=== PATIENT | female | born 1970 | race Caucasian/White ===

== ENCOUNTER 2021-06-15 12:38 | Emergency (ER) | payer BC, OTHER ==
[~2021-06-15] VITALS: Ht 154.9 cm; Wt 54.5 kg
[~2021-06-15 12:38] MED LIST: CHOL20003 PO; DHEA25 PO; OSC500T PO; VALA-7 CORPAK; VITA1CAP62 PO
[2021-06-15 13:01] VITALS: BP 102/75
== END 2021-06-15 13:58 | disposition home or self-care (01) ==
LOC: ER 12:39
DX: U07.1 COVID-19 (principal); R07.81 Pleurodynia; Z88.8 Allergy status to other drugs, medicaments and biological substances; Z79.2 Long term (current) use of antibiotics; Z79.899 Other long term (current) drug therapy
CPT/HCPCS: 99281

== ENCOUNTER 2021-12-28 14:08 | Day surgery (SDC) | payer BC ==
[2021-12-21 17:13] LABS: CLARITY,URINE CLEAR (Clear); COLOR,URINE YELLOW (Yellow); GLUCOSE, URINE NEGATIVE (Neg); KETONES,URINE 15 mg/dl (Neg); LEUKOCYTE ESTERASE ,URINE NEGATIVE (Neg); NITRITES, URINE NEGATIVE (Neg); OCCULT BLOOD,URINE NEGATIVE (Neg); PROTEIN,URINE NEGATIVE (Neg); UROBILINOGEN,URINE 0.2 E.U/dL (0.2-1.0)
[2021-12-21 17:17] LABS: BASOPHILS % (AUTO) 1.1 % (0-1); EOSINOPHILS % (AUTO) 0.2 % (0-6); LYMPHOCYTES # (AUTO) 1.7 X10'3 (1.1-4.8); LYMPHOCYTES % (AUTO) 40.1 % (21-51); MEAN CORPUSCULAR HEMOGLOBIN 32.1 PG (27.0-31.0); MEAN CORPUSCULAR HGB CONC 33.8 g/dL (33.0-36.5); MEAN CORPUSCULAR VOLUME 94.8 FL (78-98); MEAN PLATELET VOLUME 8.1 FL (7.4-10.4); MONOCYTES # (AUTO) 0.5 X10'3 (0-0.9); MONOCYTES % (AUTO) 10.5 % (2-12); NEUTROPHILS # (AUTO) 2.1 X10'3 (1.8-7.7); NEUTROPHILS % (AUTO) 48.1 % (42-75); PRE OP HEMATOCRIT 37.7 % (35.0-45.0); PRE OP HEMOGLOBIN 12.8 g/dL (12.0-16.0); PRE OP PLATELET COUNT 174 X10'3 (140-440); RED BLOOD COUNT 3.98 X10'6 (4.20-5.60); RED CELL DISTRIBUTION WIDTH 12.5 % (11.5-14.5)
[2021-12-21 17:21] LABS: HCG SERUM QL NEGATIVE
[2021-12-21 17:23] LABS: UA COLLECTION TYPE CLN CATCH MIDSTREAM
[2021-12-21 17:23] LABS: ALBUMIN 3.5 G/DL (3.4-5.0); ALBUMIN/GLOBULIN RATIO 1.2 (1.1-1.5); ALKALINE PHOSPHATASE 58 IU/L (46-116); BLOOD UREA NITROGEN 13 MG/DL (7-18); BUN/CREATININE RATIO 13.7 (6.6-38.0); CALCIUM 8.3 MG/DL (8.5-10.1); CHLORIDE 106 MMOL/L (99-107); CREATININE 0.95 MG/DL (0.40-0.90); PRE OP ALT 17 U/L (30-65); PRE OP ANION GAP 5 (8-16); PRE OP AST 25 U/L (10-37); PRE OP BILIRUB, TOTAL 0.2 MG/DL (0.0-1.0); PRE OP GLUCOSE 89 MG/DL (70-104); PRE OP POTASSIUM 3.8 MMOL/L (3.4-5.1); PRE OP SODIUM 144 MMOL/L (135-145); TOTAL CARBON DIOXIDE 33.4 MMOL/L (24-32); TOTAL PROTEIN 6.5 G/DL (6.4-8.2); eGFR 63 ML/MIN
[2021-12-28] VITALS (7 sets, daily range): BP systolic 98–131; BP diastolic 76–81
[~2021-12-28] VITALS: Ht 154.9 cm; Wt 55.1 kg
[~2021-12-28 14:08] MED LIST changes: +ceFOXitin 2GM-NS 100mL ADDvant 100 ML IV ONE; +famotidine 20mg tablet PO ONE
[2021-12-28] MEDS ORDERED: labetalol 20mg/4ml (5mg/ml) syringe IV PRN (14:35)
[2021-12-28] MEDS ORDERED: hydrALAZINE 20mg/ml inj. IV PRN (14:35)
[2021-12-28] MEDS ORDERED: fentaNYL/PF 50MCG/1 ML 2ML syringe IV PRN ×2 (14:35)
[2021-12-28] MEDS ORDERED: ondansetron/PF 4mg/2ml inj IV PRN (14:35)
[2021-12-28] MEDS ORDERED: morphine 2 MG/ML inj. syringe IV PRN (14:35)
[2021-12-28] MEDS ORDERED: morphine 4 MG/ML inj SYRINge IV PRN (14:35)
[2021-12-28] MEDS ORDERED: ringers solution, lacted 1,000 ML IV SCH (14:35)
[2021-12-28] MEDS ORDERED: DESV100T6 PO (14:36)
[2021-12-28] MEDS ORDERED: FENTANYL CITRATE/PF 50 MCG/1 ML VIAL ONE (15:56)
[2021-12-28] MEDS ORDERED: LIDOcaine 2% (20mg/ml) 5ml vial ONE (16:00)
[2021-12-28] MEDS ORDERED: ondansetron/PF 4mg/2ml inj ONE (16:00)
[2021-12-28] MEDS ORDERED: propofol inj 20 ML IV ONE (16:00)
[2021-12-28] MEDS ORDERED: ketorolac trometh. 30mg/ml inj. ONE (16:37)
--- NOTE | 2021-12-28 16:41 | NUR ---
Received from OR via [facility] IN STABLE CONDITION , accompanied by Anesthesiologist and CORRUGATOR OPERATOR HELPER report given by CORRUGATOR OPERATOR HELPER AND Anesthesiolgist. Addendum: 12/28/21 at 1644 by Jeana Arias RN Amended: Links added.
--- NOTE | 2021-12-28 16:45 | NUR ---
CARE OF PT TAKEN OVER, REPORT RECEIVED, PT IS ALERT AND TALKING. ENCOURAGED TO DEEP BREATH, PT GIVEN JUICE TO DRINK. DENIES NAUSEA. KAMERON PAD IN PLACE WITH MINIMAL BLEEDING, VITAL SIGNS STABLE
[2021-12-28] MEDS ORDERED: acetaminophen 1,000mg/100ml IV 100 ML IV STA (16:47)
--- NOTE | 2021-12-28 17:21 | NUR ---
PT D/[facility] VIA WHEELCHAIR, REMAINS IN STABLE CONDITION, DISCHARGE INSTRUCTIONS GIVEN TO PT, SHE VERBALIZED UNDERSTANDING, PT TO FOLLOW UP IN [address] BARBOZA. CALLED AND BROUGHT CAR TO FRONT ENTRY WAY. PT STATES SHE HAS A MINIMAL AMOUNT OF CRAMPING IN LOWER ABDOMEN AND THAT IT HAD GREATLY IMPROVED SINCE HER ARRIVAL TO THE RECOVERY ROOM. PT MEETS ALL DISCHARGE CRITERIA TO BE DISCHARGED FROM THE PACU. MINIMAL BLEEDING ON PERIPAD. D/[facility]
[2021-12-29] MEDS ORDERED: ringers solution, lacted 1,000 ML IV SCH (05:00)
== END 2021-12-28 17:21 | disposition home or self-care (01) ==
LOC: PAS 14:08
PROVIDERS: ATTEND Obstetrics & Gynecology Obstetrics
DX: N95.0 Postmenopausal bleeding (principal); F41.9 Anxiety disorder, unspecified; F32.A Depression, unspecified; Z98.890 Other specified postprocedural states; Z79.899 Other long term (current) drug therapy; Z88.8 Allergy status to other drugs, medicaments and biological substances; Z87.891 Personal history of nicotine dependence; Z20.822 Contact with and (suspected) exposure to COVID-19; Z83.3 Family history of diabetes mellitus; Z82.49 Family history of ischemic heart disease and other diseases of the circulatory system; Z80.1 Family history of malignant neoplasm of trachea, bronchus and lung
CPT/HCPCS: 36415; 58558; 71046; 80053; 81003; 82948; 84703; 85025; 86885; 86900; 86901; 93005; J0694; J1885; J2405; J2704; J3010; J3490; J7030; J7120; U0003; U0005; Z7506; Z7512; A4355; A4618; A6258; A7000